=== PATIENT | male | born 1980 | race African-American/Black ===

== ENCOUNTER 2017-07-27 07:07 | Emergency (ER) | payer OTHER ==
[~2017-07-27] VITALS: Ht 175.3 cm; Wt 77.3 kg
[2017-07-27 09:39] VITALS: BP 156/97
== END 2017-07-27 09:42 | disposition home or self-care (01) ==
LOC: EME 07:07
DX: S39.012A Strain of muscle, fascia and tendon of lower back, initial encounter (principal); S06.0X0A Concussion without loss of consciousness, initial encounter; H57.11 Ocular pain, right eye; V74.6XXA Passenger on bus injured in collision with heavy transport vehicle or bus in traffic accident, initial encounter; Y92.411 Interstate highway as the place of occurrence of the external cause
CPT/HCPCS: 70450; 72131; 93005